=== PATIENT | female | born 1990 | race Two or more races ===

== ENCOUNTER → 2024-11-02 | Outpatient (CLI) | payer OTHER ==
[2024-11-02 10:46] LABS: PLATELET COUNT, AUTOMATED 309 10^3/uL (150-450)
[2024-11-02 11:38] LABS: HIV 1&2 SCREEN NEGATIVE (NEGATIVE)
[2024-11-02 11:46] LABS: HEPATITIS C VIRUS ABY INDEX < 0.02 INDEX (<0.8)
[2024-11-02 12:04] LABS: Trichomonas vaginalis (AMP) NOT DETECTED (NEGATIVE)
[2024-11-02 12:28] LABS: GC DNA AMPLIFICATION NEGATIVE (NEGATIVE)
== END ==
LOC: M PLALAB 08:50
PROVIDERS: ATTEND Obstetrics & Gynecology
DX: Z34.91 Encounter for supervision of normal pregnancy, unspecified, first trimester (principal)

== ENCOUNTER → 2024-11-29 | Outpatient (REF) | payer OTHER | LOC: M SFHCWAGY 12:58 | PROVIDERS: ATTEND Obstetrics & Gynecology | DX: O34.211 Maternal care for low transverse scar from previous cesarean delivery (principal) ==

== ENCOUNTER → 2024-12-28 | Outpatient (CLI) | payer OTHER | LOC: M WHC 09:39 | PROVIDERS: ATTEND Obstetrics & Gynecology | DX: O34.211 Maternal care for low transverse scar from previous cesarean delivery (principal); Z36.3 Encounter for antenatal screening for malformations; Z3A.19 19 weeks gestation of pregnancy ==

== ENCOUNTER → 2025-02-22 | Outpatient (CLI) | payer OTHER | LOC: M WHC 08:44 | PROVIDERS: ATTEND Obstetrics & Gynecology | DX: Z34.82 Encounter for supervision of other normal pregnancy, second trimester (principal); Z3A.28 28 weeks gestation of pregnancy ==

== ENCOUNTER → 2025-03-02 | Outpatient (CLI) | payer OTHER | LOC: M LAB 08:00 | PROVIDERS: ATTEND Nurse Practitioner Family | DX: R73.09 Other abnormal glucose (principal) ==

== ENCOUNTER → 2025-03-29 | Outpatient (CLI) | payer OTHER | LOC: M WHC 07:00 | PROVIDERS: ATTEND Nurse Practitioner Family | DX: O24.419 Gestational diabetes mellitus in pregnancy, unspecified control (principal); Z3A.33 33 weeks gestation of pregnancy; O40.3XX0 Polyhydramnios, third trimester, not applicable or unspecified ==